=== PATIENT | male | born 1965 | race African-American/Black ===

== ENCOUNTER 2016-11-29 15:24 | Emergency (ER) | payer SELFPAY ==
[2016-11-29 15:32] VITALS: BP 171/93; PULSE 90; TEMP 98.7; BMI 30.8
--- NOTE | 2016-11-29 16:48 | PDOC ---
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 He cleaned wound with water, did not notice any foreign bodies,, states did not have profuse bleeding, has no numbness or tingling in foot. 11/29/16 21:56 Timing/Duration: reports: just prior to arrival Severity: Yes: moderate Associated Symptoms: reports: denies symptoms Past History - Travel Traveled outside of the country in the last 30 days: No Close contact w/someone who was outside of country & ill: No - Past Medical History Other medical history: denies - Immunization History Immunization Up to Date: Yes - Psycho/Social/Smoking Cessation Hx Anxiety: No Suicidal Ideation: No Smoking History: Never smoked Have you smoked in the past 12 months: No Information on smoking cessation initiated: No Hx Alcohol Use: No Drug/Substance Use Hx: No Substance Use Type: None Review of Systems - Review of Systems Able to Perform ROS?: Yes Is the patient limited Swedish proficient: Yes Constitutional: Yes: Symptoms Reported, See HPI, Malaise HEENTM: No: Symptoms Reported Musculoskeletal: Yes: Symptoms Reported, See HPI, Muscle Pain (lateral right calf secondary to laceration) All Other Systems: Reviewed and Negative *Physical Exam - Vital Signs Last Vital Signs Temp Pulse Resp BP Pulse Ox 98.7 F 90 18 171/93 98 11/29/16 15:26 11/29/16 15:26 11/29/16 15:26 11/29/16 15:26 11/29/16 15:26 - Physical Exam General Appearance: Yes: Nourished, Appropriately Dressed, Apparent Distress, Mild Distress HEENT: positive: DEVAN, Normal ENT Inspection, TMs Normal, Pharynx Normal Respiratory/Chest: positive: Lungs Clear Musculoskeletal: positive: Decreased Range of Motion (secondary to pain and laceration to right calf, has a 4 cm laceration full thickness to midpoint right lateral calf. 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, Fully Oriented, Alert, Normal Mood/ Affect, Normal Response, Motor Strength 5/5 Procedures - Laceration/Wound Repair Right Lateral Leg Wound Length: 2.6 to 5.0 cm Wound Explored: clean Wound's Depth, Shape: linear Irrigated w/ Saline: Yes Betadine Prep: Yes Anesthesia: 1% Lidocaine w/ Epi Wound Repaired With: Sutures Suture Size/Type: 4:0 Number of Sutures: 8 Layer Closure: No Sterile Dressing Applied: Yes Progress Note - Progress Note Progress Note: Leg laceration, repaired Medical Decision Making - Medical Decision Making 11/29/16 16:49 Large Leg laceration repaired 11/29/16 16:51 *DC/Admit/Observation/Transfer Diagnosis at time of Disposition: Laceration of right lower leg Qualifiers: Encounter type: initial encounter Qualified Code(s): S81.811A - Laceration without foreign body, right lower leg, initial encounter - Discharge Dispostion Disposition: HOME Condition at time of disposition: Stable Admit: No - Patient Instructions Printed Discharge Instructions: DI for Laceration Repair Additional Instructions: Rest, elevate, avoid strenuous activity or heavy lifting until sutures are removed Leave dressing on for the next 48 hour Then may remove dressing gently and wash area with soap and water. Reapply bacitracin ointment and dressing daily for the next 5 days On day #6 keep the wound protected and cover as needed until sutures are removed allowing wound to start to dry May use Tylenol or Motrin for pain relief Suture removal in : 14 Days - Post Discharge Activity Work/School Note: Back to Work
== END 2016-11-29 17:22 | disposition home or self-care (01) ==
LOC: JERFT 15:24
PROC: 0HQKXZZ Repair Right Lower Leg Skin, External Approach (ICD-10-PCS; principal; 2016-11-29)
DX: S81.811A Laceration without foreign body, right lower leg, initial encounter (principal); W27.8XXA Contact with other nonpowered hand tool, initial encounter; Y93.89 Activity, other specified; Y92.89 Other specified places as the place of occurrence of the external cause; Y99.8 Other external cause status
CPT/HCPCS: 99281-25

== ENCOUNTER 2016-12-13 10:40 | Emergency (ER) | payer SELFPAY ==
[2016-12-13 10:43] VITALS: BP 149/89; PULSE 81; TEMP 98.6; BMI 31.5
--- NOTE | 2016-12-13 11:36 | PDOC ---
Suture Removal/Wound Check HPI - History of Present Illness Chief Complaint: Suture/Staple Removal(Here) Stated Complaint: SUTURE REMOVAL Time Seen by Provider: 12/13/16 10:50 History Source: Yes: Patient Exam Limitations: Yes: No Limitations Treated at: [facility] ED - Previous ED Treatment Type of procedure performed on last visit: Yes: Laceration Repair Tetanus Immunization: Yes: Up to Date Past History - Travel Traveled outside of the country in the last 30 days: No Close contact w/someone who was outside of country & ill: No - Past Medical History Allergies/Adverse Reactions: Allergies No Known Allergies Allergy (Verified 12/13/16 10:42) Home Medications: Ambulatory Orders NK [No Known Home Medication] 12/13/16 General: Yes: no pertinent history Surgical History: Yes: No Surgical History - Immunization History Immunizations Up to Date: Yes Tetanus Status: Less than 5 years - Social History Smoking Status: Never smoked Suture Removal/Wound Check PE - Physical Exam Laceration/Wound Check Symptoms: reports: None Current Severity Level: None Location of Laceration/Wound: right: Leg (well healed suture line to lateral calf) *Review of Systems - Review of Systems Able to Perform ROS?: Yes Constitutional: Yes: See HPI. No: Symptoms Reported, Malaise Musculoskeletal: Yes: See HPI. No: Symptoms Reported, Muscle Pain, Muscle Weakness Integumentary: Yes: Symptoms Reported Medical Decision Making - Medical Decision Making 12/13/16 11:31 suture removal without incident 12/13/16 11:36 12/13/16 11:42 *DC/Admit/Observation/Transfer Diagnosis at time of Disposition: Encounter for removal of sutures - Discharge Dispostion Disposition: HOME Condition at time of disposition: Stable Admit: No
== END 2016-12-13 11:45 | disposition home or self-care (01) ==
LOC: JERFT 10:40
DX: Z48.02 Encounter for removal of sutures (principal)
CPT/HCPCS: 99281-25